=== PATIENT | male | born 1985 ===

== ENCOUNTER 2018-07-12 15:13 | Emergency (ER) | payer OTHER ==
[2018-07-12 15:22] VITALS: RESP 18; TEMP 99.1; O2SAT 98
--- NOTE | 2018-07-12 15:38 | C.PDOC ---
History Of Present Illness Patient is a 32 year old male, allergic to penicillin, who presents to the ED c/o a right upper inner lip lesion that has been present for the past 3 days. Patient states that he does not recall biting his lip or any other trauma. He states that he can move the lesion with his tongue. Patient has not taken any medicaitons for his symptoms. He denies any dental pain, vomiting, fever, chills, neck pain or mouth pain. No PMD. Patient smokes marijuana. No alcohol use. Time Seen by Provider: 07/12/18 15:25 Chief Complaint (Nursing): Dental Pain History Per: Patient History/Exam Limitations: no limitations Onset/Duration Of Symptoms: Days (3) Current Symptoms Are (Timing): Still Present Recent travel outside of the [place]: No Additional History Per: Patient Past Medical History Reviewed: Historical Data, Nursing Documentation, Vital Signs Vital Signs: Last Vital Signs Temp 99.1 F 07/12/18 15:18 Pulse 70 07/12/18 15:18 Resp 18 07/12/18 15:18 BP 115/72 07/12/18 15:18 Pulse Ox 98 07/12/18 15:18 - Medical History PMH: No Chronic Diseases Surgical History: No Surg Hx Family History: States: No Known Family Hx - Social History Hx Alcohol Use: No Hx Substance Use: No Review Of Systems Constitutional: Negative for: Fever, Chills ENT: Negative for: Other (dental or mouth pain) Gastrointestinal: Negative for: Vomiting Musculoskeletal: Negative for: Neck Pain Physical Exam - Physical Exam Appears: Well, Non-toxic, No Acute Distress Skin: Normal Color, Warm, Dry Head: Atraumatic, Normacephalic Eye(s): bilateral: Normal Inspection Oral Mucosa: Moist Teeth: Normal Dentition, Other (mucosal aspect of right upper lip small hematoma adjacent to lateral and canine tooth. No masses. Not mobile) Neurological/Psych: Oriented x3, Normal Speech, Normal Cognition ED Course And Treatment O2 Sat by Pulse Oximetry: 98 (on RA) Pulse Ox Interpretation: Normal Medical Decision Making Medical Decision Making: Reassured to follow up with clinic downstairs Disposition Counseled Patient/Family Regarding: Diagnosis, Need For Followup - Disposition Referrals: [facility] [Outside] [facility] [Outside] Disposition: HOME/ ROUTINE Disposition Time: 15:34 Condition: GOOD Additional Instructions: TOMAS MANN, thank you for letting us take care of you today. Your provider was Isela Meyer MD and you were treated for MOUTH PAIN. The emergency medical care you received today was directed at your acute symptoms. If you were prescribed any medication, please fill it and take as directed. It may take several days for your symptoms to resolve. Return to the Emergency Department if your symptoms worsen, do not improve, or if you have any other problems. Please contact your doctor or call one of the physicians/clinics you have been referred to that are listed on the Patient Visit Information form that is included in your discharge packet. Bring any paperwork you were given at discharge with you along with any medications you are taking to your follow up visit. Our treatment cannot replace ongoing medical care by a primary care provider outside of the emergency department. Thank you for allowing the [facility] team to be part of your care today. Instructions: Mouth Sores (DC) Forms: [employer] (Fijian), General Discharge Instructions - POA Present On Arrival: None - Clinical Impression Clinical Impression: Lip lesion - Scribe Statement The provider has reviewed the documentation as recorded by the [facility] All medical record entries made by the Scribe were at my direction and personally dictated by me. I have reviewed the chart and agree that the record accurately reflects my personal performance of the history, physical exam, medical decision making, and the department course for this patient. I have also personally directed, reviewed, and agree with the discharge instructions and disposition.
[2018-07-12 15:46] VITALS: BP 110/70; PULSE 75
== END 2018-07-12 15:47 | disposition home or self-care (01) ==
LOC: C.ER 15:13
DX: K13.0 Diseases of lips (principal)